=== PATIENT | female | born 1980 | race Caucasian/White ===

== ENCOUNTER 2019-09-07 15:03 | Emergency (ER) | payer OTHER ==
--- OUTSIDE RECORDS SUMMARY | 2019-09-07 15:11 | XMS REPORT | Continuity of Care Document ---
:1980 External Reference #:[id number] Author Name Rachel Grayson NP Address [address] [place] [address] Care Team Providers Name Role Phone Lou Zamorano M.D. - Care Team Information Life Agent [phone] Pediatrics Problems Active Problems Provider Date Obstructive sleep apnea syndrome Reji Islas M.D. Onset: 08/31/2013 Disturbance in sleep behavior Reji Islas M.D. Onset: 08/31/2013 Difficulty breathing Reji Islas M.D. Onset: 08/31/2013 Social History Type Date Description Comments Sex Unknown Tobacco Use Start: Unknown Never Smoked Cigarettes ETOH Use Current Alcohol Use - 1-3 Days A Week. Recreational Drug Use Never Used Drugs Allergies, Adverse Reactions, Alerts Active Allergies Reaction Severity Comments Date Lipitor 03/10/2013 Medications Active Medications SIG Qnty Indications Ordering Provider Date Bupropion HCL ER qd 30tabs Unknown 300mg Tablets ER 12HR Lisinopril 1 by mouth 30tabs Unknown 20mg Tablets every day Metformin HCL bid Unknown 1000mg Tablets Depakote tid Unknown 500mg Tablets DR Fenofibrate Micronized 1 by mouth Unknown every day 134mg Capsules Vitamin D qday Unknown (Cholecalciferol) Capsules Citalopram 1 by mouth Unknown Hydrobromide every day 40mg Tablets Farxiga 1 by mouth Unknown 10mg Tablets every day Atorvastatin Calcium 1 by mouth Unknown every day Tablets Immunizations Description No Information Available Vital Signs Date Vital Result Comment 08/11/2019 8:10am Weight 236.00 lb Height 64 inches 5'4" BMI (Body Mass Index) 40.5 kg/m2 BP Systolic 127 mmHg BP Diastolic 81 mmHg Heart Rate 96 /min O2 % BldC Oximetry 96 % Body Temperature 97.3 F [place] Score 8 Pain Level 0 07/01/2017 10:59am Weight 214.00 lb Height 64 inches 5'4" BMI (Body Mass Index) 36.7 kg/m2 BP Systolic 112 mmHg BP Diastolic 77 mmHg Heart Rate 110 /min O2 % BldC Oximetry 97 % Body Temperature 97.7 F [place] Score 11 Pain Level 0 Results Description No Information Available Procedures Description No Information Available Medical Devices Description No Information Available Encounters Type Date Location Provider Dx Diagnosis Office Visit 08/11/2019 Main Office Rachel Grayson, G47.33 Obstructive sleep 8:15a [employer] apnea (adult) (pediatric) E66.9 Obesity, unspecified Assessments Date Code Description Provider 08/11/2019 G47.33 Obstructive sleep apnea (adult) (pediatric) Rachel Grayson NP 08/11/2019 E66.9 Obesity, unspecified Rachel Grayson NP Plan of Treatment No Information Available Functional Status Description No Information Available Mental Status Description No Information Available Referrals Description No Information Available
--- OUTSIDE RECORDS SUMMARY | 2019-09-07 15:11 | XMS REPORT | Continuity of Care Document ---
:1980 External Reference #:[id number] Author Name Rachel Grayson NP (transmitted by agent of provider Marlys Marinelli) Address [address] [place] [address] Care Team Providers Name Role Phone Lou Zamorano M.D. - Care Team Information Correctional Officer Captain Pediatrics Problems Active Problems Provider Date Obstructive [...] Oximetry 96 % Body Temperature 97.3 F [place] Score 8 Pain Level 0 07/01/2017 10:59am Weight 214.00 lb Height 64 inches 5'4" BMI (Body Mass Index) 36.7 kg/m2 BP Systolic 112 mmHg BP Diastolic 77 mmHg Heart Rate 110 /min O2 % BldC Oximetry 97 % Body Temperature 97.7 F [place] Score 11 Pain Level 0 Results Description No Information Available Procedures Description No Information Available Medical Devices Description No Information Available Encounters Description No Information Available Assessments Description No Information Available Plan of Treatment No Information Available Functional Status Description No Information Available Mental Status Description No Information Available Referrals Description No Information Available
--- NOTE | 2019-09-07 15:36 | UC ---
Complaint Female HPI - HPI Summary HPI Summary: 39-year-old female presents with urinary complaint. Since this morning pt has been having urinary urgency and frequency, pain on urination, lower abdominal pressure, slight lower back pain, fatigue. Pt has hx of multiple UTIs.urination or symptoms. Nothing improved symptoms. No fever, nausea, vomiting or significant severe back pain. - History Of Current Complaint Stated Complaint: URINARY Time Seen by Provider: 09/07/19 15:35 Hx Obtained From: Patient Hx Last Menstrual Period: 10/07/14 Onset/Duration: Sudden Onset - Allergies/Home Medications Allergies/Adverse Reactions: Allergies Allergy/AdvReac Type Severity Reaction Status Date / Time atorvastatin Allergy Hives Verified 09/07/19 15:29 Home Medications: Home Medications Atorvastatin* [Lipitor*] 40 mg PO DAILY 09/07/19 [History Confirmed 09/07/19] BuPROPion XL* [Bupropion XL*] 300 mg PO DAILY 09/07/19 [History Confirmed ] Dapagliflozin 10 mg Tab (Nf) [Farxiga] 10 mg PO DAILY 09/07/19 [History Confirmed 09/07/19] Divalproex DR TAB(*) [Depakote DR(*)] 1,500 mg PO DAILY 09/07/19 [History Confirmed 09/07/19] Escitalopram * [Lexapro 5 mg (NF)] 5 mg PO DAILY 09/07/19 [History Confirmed 02/19] Insulin Degludec/Liraglutide [Xultophy 100 Unit-3.6MG/ml Pen] 42 units SUBCUT DAILY 09/07/19 [History Confirmed 09/07/19] Lisinopril TAB* [Prinivil TAB*] 10 mg PO DAILY 09/07/19 [History Confirmed 09/07] Omeprazole 40 mg PO DAILY 09/07/19 [History Confirmed 09/07/19] Risperidone [Risperdal] 2 tab PO DAILY 09/07/19 [History Confirmed 09/07/19] PMH/Surg Hx/FS Hx/Imm Hx Previously Healthy: Yes Endocrine History: Diabetes, Dyslipidemia Cardiovascular History: Hypertension Psychological History: Anxiety, Depression - Surgical History Surgical History: Yes Surgery Procedure, Year, and Place: 1997 LAPAROSCOPIC CHOLECYSTECTOMY, [facility]. 1997 CSECTION, [place]. 2001 BILATERAL TUBAL LIGATION, [place]. 09/07/2014 RIGHT CARPAL TUNNEL RELEASE AND TRIGGER FINGER RELEASE, [facility] - Social History Alcohol Use: Occasionally Substance Use Type: None Smoking Status (MU): Never Smoked Tobacco Review of Systems All Other Systems Reviewed And Are Negative: Yes Genitourinary: Positive: Dysuria, Frequency, Urgency Physical Exam Triage Information Reviewed: Yes Appearance: Well-Nourished Eye Exam: Normal ENT Exam: Normal Neck exam: Normal Neck: Positive: 1 Respiratory Exam: Normal Cardiovascular Exam: Normal Abdominal Exam: Normal Abdomen Description: Positive: Nontender, Soft. Negative: CVA Tenderness (R), CVA Tenderness (L) Musculoskeletal Exam: Normal Neurological Exam: Normal Psychological Exam: Normal Skin Exam: Normal Complaint Female Dx - Course Course Of Treatment: Patient with symptoms of UTI. Urinalysis clean at this time. Patient is very surprised that she does not have UTI. Given Pyridium. If culture returns positive and start antibiotics. She is aware if symptoms persist or worsen to seek medical attention. She is agreeable to waiting on the culture before starting antibiotics potentially unnecessarily. - Differential Dx/Diagnosis Differential Diagnosis/HQI/PQRI: Urinary Tract Infection Provider Diagnosis: Dysuria Discharge ED - Sign-Out/Discharge Documenting (check all that apply): Patient Departure All imaging exams completed and their final reports reviewed: No Studies - Discharge Plan Condition: Good Disposition: HOME Prescriptions: Phenazopyridine TAB* [Pyridium 100 mg TAB*] 100 mg PO TID #6 tab Patient Education Materials: Dysuria (ED) Referrals: Lou Zamorano MD [Primary Care Provider] - 3 Days Additional Instructions: today your urine showed no infection. we have sent a culture to ensure that is the case - Billing Disposition and Condition Condition: GOOD Disposition: Home
[2019-09-07 15:40] VITALS: BP 95/69
--- NOTE | 2019-09-10 07:01 | UC ---
- Progress Note Progress Note: urine no growth, no change av Course/Dx - Diagnoses Provider Diagnoses: Dysuria Discharge ED - Sign-Out/Discharge Documenting (check all that apply): Post-Discharge Follow Up All imaging exams completed and their final reports reviewed: No Studies - Discharge Plan Condition: Good Disposition: HOME Prescriptions: Phenazopyridine TAB* [Pyridium 100 mg TAB*] 100 mg PO TID #6 tab Patient Education Materials: Dysuria (ED) Referrals: Lou Zamorano MD [Primary Care Provider] - 3 Days Additional Instructions: today your urine showed no infection. we have sent a culture to ensure that is the case - Billing Disposition and Condition Condition: GOOD Disposition: Home
== END 2019-09-07 16:16 | disposition home or self-care (01) ==
LOC: UCCORT 15:03
DX: R30.0 Dysuria (principal); R35.0 Frequency of micturition; M54.5 Low back pain; R53.83 Other fatigue; E11.9 Type 2 diabetes mellitus without complications; I10 Essential (primary) hypertension; E78.5 Hyperlipidemia, unspecified; F41.9 Anxiety disorder, unspecified; F32.9 Major depressive disorder, single episode, unspecified; R39.15 Urgency of urination; Z87.440 Personal history of urinary (tract) infections; Z79.899 Other long term (current) drug therapy; Z79.4 Long term (current) use of insulin
CPT/HCPCS: 81003; 87086; 99211; G0463